=== PATIENT | male | born 1955 | race Caucasian/White ===

== ENCOUNTER → 2020-08-17 | Outpatient (REF) | payer MEDICARE, BC ==
[2020-08-17 13:13] LABS: HEMATOCRIT 46.5 % (42.0-52.0); HEMOGLOBIN 15.2 g/dl (13.5-17.5); MEAN CORPUSCULAR HEMOGLOBIN 31.3 pg (27.0-33.0); MEAN CORPUSCULAR HGB CONC 32.7 g/dl (32.0-36.5); MEAN CORPUSCULAR VOLUME 95.7 fl (80.0-96.0); PLATELET COUNT, AUTOMATED 155 10^3/uL (150-450); RED BLOOD COUNT 4.86 10^6/uL (4.30-6.10); WHITE BLOOD COUNT 5.4 10^3/uL (4.0-10.0)
[2020-08-17 13:55] LABS: BLOOD UREA NITROGEN 11 MG/DL (7-18); CARBON DIOXIDE LEVEL 29 MEQ/L (21-32); CHLORIDE LEVEL 108 MEQ/L (98-107); CREATININE FOR GFR 0.99 MG/DL (0.70-1.30); GLOMERULAR FILTRATION RATE > 60.0 (>49); GLUCOSE, FASTING 86 MG/DL (70-100); POTASSIUM SERUM 4.8 MEQ/L (3.5-5.1); SODIUM LEVEL 141 MEQ/L (136-145)
[2020-08-17 13:56] LABS: ALBUMIN 3.7 GM/DL (3.2-5.2); ALT/SGPT 28 U/L (12-78); BILIRUBIN,TOTAL 0.4 MG/DL (0.2-1.0); CALCIUM LEVEL 9.1 MG/DL (8.8-10.2); CHOLESTEROL LEVEL 197 MG/DL (<200); CHOLESTEROL RISK RATIO 3.648 (<5); FREE T4 1.11 NG/DL (0.76-1.46); HDL CHOLESTEROL 54 MG/DL (>40); LDL CHOLESTEROL 130 MG/DL (<100); NON-HDL-C 143 MG/DL; TOTAL 25(OH) VITAMIN D 39.7 NG/ML (30.0-100.0); TOTAL PROTEIN 6.7 GM/DL (6.4-8.2); TRIGLYCERIDES LEVEL 63 MG/DL (<150)
[2020-08-17 14:18] LABS: HEMOGLOBIN A1c 5.4 %
== END ==
LOC: M SFHCADAM 08:06
PROVIDERS: ATTEND Physician Assistant
DX: Q78.0 Osteogenesis imperfecta (principal); K21.9 Gastro-esophageal reflux disease without esophagitis; Z13.1 Encounter for screening for diabetes mellitus; Z13.220 Encounter for screening for lipoid disorders; E78.00 Pure hypercholesterolemia, unspecified

== ENCOUNTER → 2020-12-05 | Outpatient (CLI) | payer MEDICARE ==
--- NOTE | 2020-12-07 08:49 | DEXAMM ---
INDICATION: Z13.820 OSTEOPOROSIS/Q78.0/OSTEOGENESIS. COMPARISON: None. TECHNIQUE: Bone density was measured using dual-energy x-ray absorptionmetry (DEXA). FINDINGS: AP SPINE L1-L4 BMD 1.104 g/cm2 Young Adult T-Score -0.7 Age Matched Z-Score -0.6. LT FEMUR, TOTAL BMD 0.856 g/cm2 Young Adult T-Score -1.2 Age Matched Z-Score -1.1. LT NECK BMD 0.905 g/cm2 Young Adult T-Score -1.0 Age Matched Z-Score -0.1. RT FEMUR, TOTAL BMD 0.758 g/cm2 Young Adult T-Score -2.0 Age Matched Z-Score -1.8. RT NECK BMD 0.830 g/cm2 Young Adult T-Score -1.5 Age Matched Z-Score -0.7. IMPRESSION: There is normal bone density of the spine. There is low bone density of the left hip. There is low bone density of the right hip. FOLLOW-UP: Recommendation for the next bone density exam: 2 years. <Electronically signed by Manuel Lagunas > 12/07/20 0815
== END ==
LOC: M WHC 13:46
PROVIDERS: ATTEND Physician Assistant
DX: Q78.0 Osteogenesis imperfecta (principal); Z13.820 Encounter for screening for osteoporosis

== ENCOUNTER → 2020-12-24 | Outpatient (CLI) | payer MEDICARE | LOC: M LABSMTC 09:56 | PROVIDERS: ATTEND Anesthesiology | DX: Z01.812 Encounter for preprocedural laboratory examination (principal); Z20.822 Contact with and (suspected) exposure to COVID-19 ==

== ENCOUNTER 2020-12-29 08:36 | Day surgery (SDC) | payer MEDICARE ==
[~2020-12-29] VITALS: Ht 182.9 cm; Wt 84.8 kg
[~2020-12-29 08:36] MED LIST: NS 1,000 ML IV ONE
--- OUTSIDE RECORDS SUMMARY | 2020-12-29 08:43 | CCD ---
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 Active 04551836 Problem Gastroesophageal reflux disease without esophagitis K21.9 Active 907215377 Problem Colon cancer screening Z12.11 Active 108150195 Problem Pure hypercholesterolemia E78.00 Active 747599 004 ALLERGIES No Known Allergies ENCOUNTERS from 1955 to 2020-11-27 Encounter Location Date Provider Diagnosis [facility] [address] [place] [address] 12 Nov, 2020 Reg mckenna Michael Osteogenesis imperfecta Q78.0 ; Gastroesophageal reflux disease without esophagitis K21.9 ; Osteoporosis screening Z13.820 ; H/O prostate cancer Z85.46 and Pure hypercholesterolemia E78.00 IMMUNIZATIONS Vaccine Route Administration Date Status Influenza (18 yrs & older) Flublok IM Intramuscular Aug 12, 2020 Administered Pneumococcal Adult 0.5mL (Pneumovax 23) IM Intramuscular Aug 12, 2020 Administered SOCIAL HISTORY Tobacco Use: Social History Observation Description Date Details (start date - stop date) Never Smoker Sex Assigned At : Social History Observation Description Sex Assigned At Unknown Audit Question Answer Notes Total Score: 0 Interpretation: Alcohol Education Language: Question Answer Notes Languages spoken: Uzbek Drug and Alcohol Question Answer Notes Total Score: 1 Interpretation: Low level Alcohol Screening: Question Answer Notes Did you have a drink containing alcohol in the past year? No Points 0 Interpretation Negative Tobacco Use: Question Answer Notes Are you a: never smoker REASON FOR REFERRAL No Information VITAL SIGNS Weight 198.8 lbs Nov, Height 6' in Nov, BMI 26.96 kg/m2 Nov, Heart Rate 77 /min Nov, Respiratory Rate 18 /min Nov, Temperature 98.6 degrees Fahrenheit Nov, Oximetry 99 Nov, Blood pressure systolic 120 mm Hg Nov, Blood pressure diastolic 80 mm Hg Nov, MEDICATIONS Medication SIG (Take, Route, Frequency, Duration) Notes Start Da te End Date Status Calcium + D 600-200 MG-UNIT 1 tablet Orally Twice a day Active PROCEDURES No Information RESULTS No Results REASON FOR VISIT 3 month lab follow up MEDICAL (GENERAL) HISTORY Type Description Date Medical History Osteogenesis imperfecta - Pr eviously folllowed by Dr. Dominguez (Endocrinology) Medical History H/O Prostate Cancer s/p RT - follows with Urologist in [place], [place] Medical History Chronic Low Back Pain - Prev iously followe by pain clinic on Morphine, but now just uses [facility] periodically Medical History GERD with esophageal stricture Medical History Hyperlipidemia - ASCVD Risk = 12.6% 11/30 20 (Declines Statin) Surgical History Colonoscopy - [facility] (DR. Sanchez) - polyps 2015 Goals Section No Information Health Concerns No Information MEDICAL EQUIPMENT No Information MENTAL STATUS No Information FUNCTIONAL STATUS No Information ASSESSMENTS Encounter Date Diagnosis Assessment Notes Treatment Notes Treatm ent Clinical Notes Nov, Osteogenesis imperfecta (ICD-10 - Q78.0) Nov, Gastroesophageal reflux dise ase without esophagitis (ICD-10 - K21.9) Nov, Osteoporosis screening (ICD-10 - Z13.820) Nov, H/O prostate cancer (ICD-10 - Z85.46) Per Urology in [facility] Nov, Pure hypercholesterolemia (ICD-10 - E78.00) ASCVD Risk = 12.6%. Statin recommended. Risk and benefits discussed. Patient declines statin at this time PLAN OF TREATMENT Medication Medication Name Sig Start Date Stop Date Calcium + D 600-200 MG-UNIT 1 tablet Orally Twice a day Treatment Notes Assessment Notes Clinical Notes H/O prostate cancer Per Urology in [facility] Pure hypercholesterolemia ASCVD Risk = 1 2.6%. Statin recommended. Risk and benefits discussed. Patient declines statin at this time Treatment Notes Test Name Order Date DEXA Hip and Spine 2020-11-27 Next Appt Details 1 Year, labs prior Reason: Insurance Providers Payer Name Payer Address Payer Phone Insured Name Patient Relati onship to Insured Coverage Start Date Coverage End Date [employer] BCBS PPO [id number] [id number] [place] MEDICARE Part A and [address] [facility] [id number] [phone] [employer] [place]IGHT
--- OUTSIDE RECORDS SUMMARY | 2020-12-29 08:44 | CCD ---
Author Author [facility] Organization [facility] Address Unknown Phone Unavailable Care Team Providers Care Tube Fitter Name Role Phone Alanis, C Karla DO Unavailable Unavailable Alanis, C Karla DO Unavailable Unavailable Alanis, C Karla DO Unavailable Unavailable Alanis, C Karla DO Unavailable Unavailable Alanis, C Karla DO Unavailable Unavailable Alanis, C Karla DO Unavailable Unavailable Alanis, C Karla DO Unavailable Unavailable Alanis, C Karla DO Unavailable Unavailable Alanis, C Karla DO Unavailable Unavailable Alanis, C Karla DO Unavailable Unavailable Alanis, C Karla DO Unavailable Unavailable Alanis, C Karla DO Unavailable Unavailable Alanis, C Karla DO Unavailable Unavailable Alanis, C Karla DO Unavailable Unavailable Alanis, C Karla DO Unavailable Unavailable Alanis, C Karla DO Unavailable Unavailable Alanis, C Karla DO Unavailable Unavailable Alanis, C Karla DO Unavailable Unavailable Alanis, C Karla DO Unavailable Unavailable Alanis, C Karla DO Unavailable Unavailable Alanis, C Karla DO Unavailable Unavailable Alanis, C Karla DO Unavailable Unavailable Alanis, C Karla DO Unavailable Unavailable Alanis, C Karla DO Unavailable Unavailable Alanis, C Karla DO Unavailable Unavailable Alanis, C Karla DO Unavailable Unavailable Alanis, C Karla DO Unavailable Unavailable Alanis, C Karla DO Unavailable Unavailable Alanis, C Karla DO Unavailable Unavailable Alanis, C Karla DO Unavailable Unavailable Alanis, C Karla DO Unavailable Unavailable Alanis, C Karla DO Unavailable Unavailable Alanis, C Karla DO Unavailable Unavailable Alanis, C Karla DO Unavailable Unavailable Alanis, C Karla DO Unavailable Unavailable Alanis, C Karla DO Unavailable Unavailable Alanis, C Karla DO Unavailable Unavailable Alanis, C Karla DO Unavailable Unavailable Alanis, C Karla DO Unavailable Unavailable Alanis, C Karla DO Unavailable Unavailable Alanis, C Karla DO Unavailable Unavailable Alanis, C Karla DO Unavailable Unavailable Alanis, C Karla DO Unavailable Unavailable Alanis, C Karla DO Unavailable Unavailable Alanis, C Karla DO Unavailable Unavailable Alanis, C Karla DO Unavailable Unavailable Alanis, C Karla DO Unavailable Unavailable Alanis, C Karla DO Unavailable Unavailable Alanis, C Karla DO Unavailable Unavailable Alanis, C Karla DO Unavailable Unavailable Alanis, C Karla DO Unavailable Unavailable Alanis, C Karla DO Unavailable Unavailable Zhou, S Rusty RPA Unavailable Unavailable Zhou, S Rusty RPA Unavailable Unavailable Zhou, S Rusty RPA Unavailable Unavailable Zhou, S Rusty RPA Unavailable Unavailable Zhou, S Rusty RPA Unavailable Unavailable Zhou, S Rusty RPA Unavailable Unavailable Zhou, S Rusty RPA Unavailable Unavailable Zhou, S Rusty RPA Unavailable Unavailable Zhou, S Rusty RPA Unavailable Unavailable Zhou, S Rusty RPA Unavailable Unavailable Zhou, S Rusty RPA Unavailable Unavailable Zhou, S Rusty RPA Unavailable Unavailable Zhou, S Rusty RPA Unavailable Unavailable Zhou, S Rusty RPA Unavailable Unavailable Zhou, S Rusty RPA Unavailable Unavailable Zhou, S Rusty RPA Unavailable Unavailable Zhou, S Rusty RPA Unavailable Unavailable Zhou, S Rusty RPA Unavailable Unavailable Zhou, S Rusty RPA Unavailable Unavailable Zhou, S Rusty RPA Unavailable Unavailable Zhou, S Rusty RPA Unavailable Unavailable Zhou, S Rusty RPA Unavailable Unavailable Zhou, S Rusty RPA Unavailable Unavailable Zhou, S Rusty RPA Unavailable Unavailable Zhou, S Rusty RPA Unavailable Unavailable Zhou, S Rusty RPA Unavailable Unavailable Zhou, S Rusty RPA Unavailable Unavailable Zhou, S Rusty RPA Unavailable Unavailable Zhou, S Rusty RPA Unavailable Unavailable Zhou, S Rusty RPA Unavailable Unavailable Zhou, S Rusty RPA Unavailable Unavailable Zhou, S Rusty RPA Unavailable Unavailable Zhou, S Rusty RPA Unavailable Unavailable Zhou, S Rusty RPA Unavailable Unavailable Zhou, S Rusty RPA Unavailable Unavailable Zhou, S Rusty RPA Unavailable Unavailable Zhou, S Rusty RPA Unavailable Unavailable Zhou, S Rusty RPA Unavailable Unavailable Zhou, S Rusty RPA Unavailable Unavailable Zhou, S Rusty RPA Unavailable Unavailable Zhou, S Rusty RPA Unavailable Unavailable Zhou, S Rusty RPA Unavailable Unavailable Zhou, S Rusty RPA Unavailable Unavailable Zhou, S Rusty RPA Unavailable Unavailable Zhou, S Rusty RPA Unavailable Unavailable Zhou, S Rusty RPA Unavailable Unavailable Abelardo, S Rusty RPA Unavailable Unavailable Abelardo, S Rusty RPA Unavailable Unavailable Abelardo, S Rusty RPA Unavailable Unavailable Abelardo, S Rusty RPA Unavailable Unavailable Abelardo, S Rusty RPA Unavailable Unavailable Abelardo, S Rusty RPA Unavailable Unavailable Abelardo, S Rusty RPA Unavailable Unavailable Abelardo, S Rusty RPA Unavailable Unavailable Abelardo, S Rusty RPA Unavailable Unavailable Abelardo, S Rusty RPA Unavailable Unavailable Abelardo, S Rusty RPA Unavailable Unavailable Abelardo, S Rusty RPA Unavailable Unavailable Abelardo, S Rusty RPA Unavailable Unavailable Abelardo, S Rusty RPA Unavailable Unavailable Re-disclosure Warning The records that you are about to access may contain information from federally-assisted alcohol or drug abuse programs. If such information is present, then the following federally mandated warning applies: This information has been disclosed to you from records protected by federal confidentiality rules (42 CFR part 2). The federal rules prohibit you from making any further disclosure of this information unless further disclosure is expressly permitted by the written consent of the person to whom it pertains or as otherwise permitted by 42 CFR part 2. A general authorization for the release of medical or other information is NOT sufficient for this purpose. The Federal rules restrict any use of the information to criminally investigate or prosecute any alcohol or drug abuse patient.The records that you are about to access may contain highly sensitive health information, the redisclosure of which is protected by Article 27-F of the [facility] Public Health law. If you continue you may have access to information: Regarding HIV / AIDS; Provided by facilities licensed or operated by the [facility] Office of Mental Health; or Provided by the [facility] Office for People With Developmental Disabilities. If such information is present, then the following [facility] mandated warning applies: This information has been disclosed to you from confidential records which are protected by state law. State law prohibits you from making any further disclosure of this information without the specific written consent of the person to whom it pertains, or as otherwise permitted by law. Any unauthorized further disclosure in violation of state law may result in a fine or shelter sentence or both. A general authorization for the release of medical or other information is NOT sufficient authorization for further disc losure. Family History Family Member Name Family Member Gender Family Member Status Date o f Status Description Data Source(s) Unknown Male Problem [facility] ([facility] [place] Encounters Encounter Providers Location Date Indications Data Source(s ) Out[place] [address] [facility] [place] [address] 11/22/2020 12:00:00 AM EST eCW1 ([facility]) Outpatient Attender: Rusty Zhou RPA Nilsa/ A.M.P. Urolo gy 08/31/2020 01:00:00 PM EDT [facility] ([facility] [place] [address] [facility] [place] [address] 08/12/2020 12:00:00 AM EDT eCW1 ([facility]) Outpatient Attender: Karla Alanis DO [facility] 01/21/2020 08:45:00 AM EDT [facility] ([facility]) Immunizations Vaccine Date Status Description Data Source(s) pneumococcal polysaccharide PPV23 08/12/2020 12:04:00 PM EDT comple odette eCW1 ([facility]) pneumococcal polysaccharide PPV23 08/12/2020 12:04:00 PM EDT comple odette eCW1 ([facility]) influenza, recombinant, quadrIvalent,injectable, prese rvative free 08/12/2020 12:03:00 PM EDT completed eCW1 ([facility]) influenza, recombinant, quadrIvalent,injectable, prese rvative free 08/12/2020 12:03:00 PM EDT completed eCW1 ([facility]) Pneumococcal conjugate PCV 13 01/21/2020 08:35:00 AM EDT completed [facility] ([facility]) Tdap 01/21/2020 08:35:00 AM EDT completed M EDENT ([facility]) Insurance Providers Payer name Policy type / Coverage type Policy ID Covered libertarian ID Covered libertarian's relationship to murillo Policy [place] Plan Information MEDICARE BLUE PPO 306 [id number] SP [id number] MEDICARE BLUE PPO 306 [id number] SP [id number] EXCELL BC-BS PPO 306 [id number] SP [id number] MEDICARE [id number] SP [id number] SELF PAY MEDICARE BLUE PPO EXCELLUS BC [id number] SP [id number] MEDICARE BLUE PPO EXCELLUS BC [id number] SP [id number] SELF PAY MEDICARE [id number] SP [id number] Medicare Medigap Part B [id number] Self [id number] BCBS Excellus Medicare Commercial [id number] Self [id number] [place] Medig[place] B [id number] Family Dependent [id number] BLUE CROSS BLUE CROSS [id number] SP [id number] BLUE CROSS [id number] SP [id number] BLUE CROSS [id number] SP [id number] MEDICARE BLUE PPO EXCELLUS BC UNAVAILABLE SP UNAVAILABLE MEDICARE BLUE PPO EXCELLUS BC [id number] SP [id number] MEDICARE [id number] SP [id number] A BLUE CROSS [id number] SP [id number] Medicare Medigap Part B [id number] Self [id number] BCBS Excellus Medicare Commercial [id number] Self [id number] Medicare Medicare Primary [id number] Self [id number] [place] Med[place] B Ppo Family Dependent Ppo Medicare Medicare Primary Self [place] Family Dependent Problems, Conditions, and Diagnoses Code Display Name Description Problem Type Effective Dates Data Source(s) E78.00 414185602 Pure hypercholesterolemia Problem 11/23/2020 12:00:00 AM EST eCW1 ([facility]) Z13.820 425310794 Osteoporosis screening Problem 11/22/2020 12 :00:00 AM EST eCW1 ([facility]) Z85.46 064918686 H/O prostate cancer Problem 11/22/2020 12:00 :00 AM EST eCW1 ([facility]) Z12.11 781312809 Colon cancer screening Problem 08/12/2020 12 :00:00 AM EDT eCW1 ([facility]) K21.9 920940775 Gastroesophageal reflux disease without e sophagitis Problem 08/12/2020 12:00:00 AM EDT eCW1 ([facility]) Q78.0 93145849 Osteogenesis imperfecta Problem 08/12/2020 1 2:00:00 AM EDT eCW1 ([facility]) Surgeries/Procedures Procedure Description Date Indications Data Source(s) PNEUMOCOCCAL POLYSAC VACCINE 23-V 2 />YR SUBQ/IM 08/12 12:00:00 AM EDT eCW1 ([facility]) Immunization: Flublok Quadrivalent (18 years & older) 0.5mL IM (Influenza) 08/12/2020 12:00:00 AM EDT eCW1 ([facility]) Results ID Date Data Source [id number] 12/24/2020 11:00:00 AM EST [facility] Name Value Range Interpretation Code Description Data Bhavna rce(s) Supporting Document(s) SARS coronavirus 2 RNA Not Detected [facility] [place] This lab was ordered by [facility] and reported by [facility]. ID Date Data Source [id number] 08/31/2020 01:04:00 PM EDT [facility] ([facility] [place]) Name Value Range Interpretation Code Description Data Bhavna rce(s) Supporting Document(s) Glucose [Presence] in Urine Laboratory test result [facility] ([facility] [place]) Ua Nitrite Laboratory test result ME DENT ([facility] [place]) Protein [Presence] in Urine by Test strip Laboratory test result [facility] ([facility] [place]) Ua Leuko Laboratory test result ME DENT ([facility] [place]) Ketones [Presence] in Urine by Test strip Laboratory test result [facility] ([facility] [place]) Blood [Presence] in Urine by Visual Laboratory test result [facility] ([facility] [place]) Color of Urine Laboratory test result [facility] ([facility] [place]) Clarity of Urine Laboratory test result [facility] ([facility] [place]) Ua Specific [place] 1.020 1.003-1.030 MEDE NT ([facility] [place]) pH of Urine by Test strip 6.0 5.0-7.5 [facility] ([facility]) Bilirubin.total [Presence] in Urine by Test strip Laboratory test res ult [facility] ([facility] [place]) Urobilinogen [Mass/volume] in Urine by Test strip 0.2 E.U./dL 0.0-1.0 [facility] ([facility] [place]) ID Date Data Source [id number] 08/23/2020 01:00:00 PM EDT [facility] ([facility] [place]) Name Value Range Interpretation Code Description Data Bhavna rce(s) Supporting Document(s) Prostate specific Ag [Mass/volume] in Serum or Plasma 0.5 ng/mL 0.0- 4.0 [facility] ([facility] [place]) IN 20% OF CASES W/ BPH, PSA MAY BE 10 NG/ML OR MORE. SERUM PSA CONCENTRATION SHOULD NOT BE INTERPRETED ABSOLUTE EVIDENCE FOR THE PRESENCE OR ABSENCE OF MALIGNANT DISEASE. METHOD IS [employer] CHEMILUMINESCENT IMMUNOASSAY (CALIBRATION TRACEABLE TO WHO 1ST IS, 1998,96/668). VALUES OBTAINED WITH DIFFERENT ASSAY METHODS OR KITS CANNOT BE USED INTERCHANGEABLY. Procedure Social History Code Duration Value Status Description Data Source(s ) Smoking 11/22/2020 12:00:00 AM EST Never Smoker completed Never S moker eCW1 ([facility]) Smoking 08/31/2020 12:00:00 AM EDT current cigarette smoker co mpleted current cigarette smoker [facility] ([facility] [place]) Smoking 08/12/2020 12:00:00 AM EDT Never Smoker completed Never S moker eCW1 ([facility]) Vital Signs ID Date Data Source UNK Name Value Range Interpretation Code Description Data Source(s) Diastolic blood pressure 80 mm[Hg] 80 mm[Hg] eCW1 ([facility]) Systolic blood pressure 120 mm[Hg] 120 mm[Hg] e CW1 ([facility]) Body temperature 98.6 [degF] 98.6 [degF] eCW1 ( [facility]) Respiratory rate 18 /min 18 /min eCW1 ([facility]) Heart rate 77 /min 77 /min eCW1 ([facility]) Body mass index (BMI) [Ratio] 26.96 kg/m2 26.96 kg/m2 W1 ([facility]) Body height [in_i] W1 ([facility]) Body weight 198.8 [lb_av] 198.8 [lb_av] eCW1 ([facility]) Heart rate 72 /min 72 /min [facility] ([facility] [place] Diastolic blood pressure 78 mm[Hg] 78 mm[Hg] [facility] ([facility] [place]) Systolic blood pressure 122 mm[Hg] 122 mm[Hg] M EDENT ([facility] [place]) Body mass index (BMI) [Ratio] 25.1 kg/m2 25.1 k g/m2 [facility] ([facility] [place]) Body weight 83.916 kg 83.916 kg [facility] ([facility] [place]) Body weight 185.00 [lb_av] 185.00 [lb_av] MEDEN T ([facility] [place]) Body height 72 [in_i] 72 [in_i] [facility] ([facility] [place]) 6'0" Diastolic blood pressure 70 mm[Hg] 70 mm[Hg] eCW1 ([facility]) Systolic blood pressure 130 mm[Hg] 130 mm[Hg] e CW1 ([facility]) Body temperature 98.3 [degF] 98.3 [degF] eCW1 ( [facility]) Respiratory rate 18 /min 18 /min eCW1 ([facility]) Heart rate 82 /min 82 /min eCW1 ([facility]) Body mass index (BMI) [Ratio] 26.47 kg/m2 26.47 kg/m2 eCW1 ([facility]) Body height [in_i] eCW1 ([facility]) Body weight 195.2 [lb_av] 195.2 [lb_av] eCW1 ([facility]) Oxygen saturation in Arterial blood by Pulse oximetry 98 % 98 % [facility] ([facility]) Body mass index (BMI) [Ratio] 26.9 kg/m2 26.9 k g/m2 [facility] ([facility]) Body weight 90.040 kg 90.040 kg [facility] ([facility]) Body weight 198.50 [lb_av] 198.50 [lb_av] MEDEN T ([facility]) Body height 72 [in_i] 72 [in_i] MEDBRIANNE ([facility] 6'0" Body temperature 97.2 [degF] 97.2 [degF] MEDBRIANNE ([facility]) Heart rate 67 /min 67 /min AB ([facility]) Diastolic blood pressure 73 mm[Hg] 73 mm[Hg] AB ([facility]) Systolic blood pressure 134 mm[Hg] 134 mm[Hg] M LILIYA ([facility])
[2020-12-29] MEDS ORDERED: propofoL 200 MG/20 ML VIAL As Ordered ONE ×3 (09:33→10:11)
--- NOTE | 2020-12-29 10:43 | ROOR ---
Patient Name: Neo Chinchilla Procedure Date: 12/29/2020 9:31 AM Date of : 1955 Age: 65 Room: [facility] Gender: Male Note Status: Finalized Procedure: Colonoscopy Indications: High risk colon cancer surveillance: Personal history of colonic polyps Providers: Dg Levine MD Referring MD: Ralf Rodriguez MD Requesting Provider: Medicines: Monitored Anesthesia Care Complications: No immediate complications. Procedure: Pre-Anesthesia Assessment: - Prior to the procedure, a History and Physical was performed, and patient medications and allergies were reviewed. The patient is competent. The risks and benefits of the procedure and the sedation options and risks were discussed with the patient. All questions were answered and informed consent was obtained. Patient identification and proposed procedure were verified by the physician, the nurse and the anesthesiologist in the procedure room. Mental Status Examination: alert and oriented. Airway Examination: normal oropharyngeal airway and neck mobility. Respiratory Examination: clear to auscultation. CV Examination: normal. Prophylactic Antibiotics: The patient does not require prophylactic antibiotics. Prior Anticoagulants: The patient has taken no previous anticoagulant or antiplatelet agents. ASA Grade Assessment: II - A patient with mild systemic disease. After reviewing the risks and benefits, the patient was deemed in satisfactory condition to undergo the procedure. The anesthesia plan was to use monitored anesthesia care (MAC). Immediately prior to administration of medications, the patient was re-assessed for adequacy to receive sedatives. The heart rate, respiratory rate, oxygen saturations, blood pressure, adequacy of pulmonary ventilation, and response to care were monitored throughout the procedure. The physical status of the patient was re-assessed after the procedure. The Colonoscope was introduced through the anus and advanced to the terminal ileum, with identification of the appendiceal orifice and IC valve. The colonoscopy was performed without difficulty. The patient tolerated the procedure well. The quality of the bowel preparation was good. The terminal ileum, ileocecal valve, appendiceal orifice, and rectum were photographed. Scope insertion time was 2 minutes. Scope withdrawal time was 15 minutes. The total duration of the procedure was 17 minutes. Findings: The perianal and digital rectal examinations were normal. The terminal ileum appeared normal. Multiple ( more than 10) sessile polyps were found in the sigmoid colon, descending colon, transverse colon and ascending colon. The polyps were 4 to 12 mm in size. These polyps were removed with a cold snare. Resection and retrieval were complete. To close a defect after polypectomy, one hemostatic clip was successfully placed. There was no bleeding at the end of the procedure. Non-bleeding external and internal hemorrhoids were found during retroflexion. The hemorrhoids were medium-sized. Patchy mild mucosal changes characterized by altered vascularity and erythema were found in the distal rectum. Impression: - The examined portion of the ileum was normal. - Multiple ( more than 10 polyps) 4 to 12 mm size polyps in the sigmoid colon, in the descending colon, in the transverse colon and in the ascending colon, removed with a cold snare. Resected and retrieved. Clip was placed. - Non-bleeding external and internal hemorrhoids. 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 Recommendation: - Patient has a contact number available for emergencies. The signs and symptoms of potential delayed complications were discussed with the patient. Return to normal activities tomorrow. Written discharge instructions were provided to the patient. - Clear liquid diet today, then advance as tolerated to high fiber diet. - Continue present medications. - Miralax 1 capful (17 grams) in 8 ounces of water PO daily for 5 days. - Use hydrocortisone suppository 25 mg 1 per rectum once a day for 5 days. - Await pathology results. - Repeat colonoscopy in 1 year for surveillance of multiple polyps. - Check Genetic testing based on the family history for FAP syndrome at appointment to be scheduled. - Telephone GI clinic for pathology results in 2 weeks. - Return to GI clinic in [facility] (address [address], [address], [place], [facility]) in 4 -- 6 weeks. Please call GI clinic @ [phone] for apppointment date and time. - Return to primary care physician. Procedure Code(s): --- Professional --- 81245, Colonoscopy, flexible; with removal of tumor(s), polyp(s), or other lesion(s) by snare technique Diagnosis Code(s): --- Professional --- Z86.010, Personal history of colonic polyps K64.8, Other hemorrhoids K63.5, Polyp of colon K62.7, Radiation proctitis CPT copyright 2019 [employer]. All rights reserved. The codes documented in this report are preliminary and upon human resources officer review may be revised to meet current compliance requirements. Dg Levine MD Dg Levine MD 12/29/2020 10:43:20 AM Electronically signed by Dg Levine MD Number of Addenda: 0 Note Initiated On: 12/29/2020 9:31 AM Estimated Blood Loss: Estimated blood loss was minimal.
[2020-12-29 11:10] VITALS: BP 96/56
== END 2020-12-29 11:16 | disposition home or self-care (01) ==
LOC: M OPP 08:36
PROVIDERS: ATTEND Internal Medicine Gastroenterology
DX: Z12.11 Encounter for screening for malignant neoplasm of colon (principal); Z86.010 Personal history of colon polyps; K63.5 Polyp of colon; K64.8 Other hemorrhoids; K62.7 Radiation proctitis; K21.9 Gastro-esophageal reflux disease without esophagitis; Q78.0 Osteogenesis imperfecta; Z85.46 Personal history of malignant neoplasm of prostate; Z92.3 Personal history of irradiation; Z87.891 Personal history of nicotine dependence; Z80.0 Family history of malignant neoplasm of digestive organs

== ENCOUNTER → 2021-08-29 | Outpatient (REF) | payer MEDICARE ==
[2021-08-29 12:44] LABS: HEMATOCRIT 47.1 % (42.0-52.0); HEMOGLOBIN 15.5 g/dl (13.5-17.5); MEAN CORPUSCULAR HEMOGLOBIN 31.3 pg (27.0-33.0); MEAN CORPUSCULAR HGB CONC 32.9 g/dl (32.0-36.5); PLATELET COUNT, AUTOMATED 151 10^3/uL (150-450); RED BLOOD COUNT 4.96 10^6/uL (4.30-6.10)
[2021-08-29 13:17] LABS: ALBUMIN 3.8 GM/DL (3.2-5.2); ALT/SGPT 21 U/L (12-78); BILIRUBIN,TOTAL 0.5 MG/DL (0.2-1.0); BLOOD UREA NITROGEN 10 MG/DL (7-18); CALCIUM LEVEL 10.1 MG/DL (8.8-10.2); CARBON DIOXIDE LEVEL 30 MEQ/L (21-32); CHLORIDE LEVEL 108 MEQ/L (98-107); CHOLESTEROL LEVEL 201 MG/DL (<200); CHOLESTEROL RISK RATIO 3.406 (<5); CREATININE FOR GFR 1.09 MG/DL (0.70-1.30); FREE T4 1.08 NG/DL (0.76-1.46); GLOMERULAR FILTRATION RATE > 60.0 (>49); GLUCOSE, FASTING 92 MG/DL (70-100); HDL CHOLESTEROL 59 MG/DL (>40); LDL CHOLESTEROL 123 MG/DL (<100); NON-HDL-C 142 MG/DL; SODIUM LEVEL 141 MEQ/L (136-145); TOTAL PROTEIN 6.7 GM/DL (6.4-8.2); TRIGLYCERIDES LEVEL 97 MG/DL (<150)
[2021-08-29 13:20] LABS: TOTAL 25(OH) VITAMIN D 28.5 NG/ML (30.0-100.0)
[2021-08-29 13:30] LABS: HEMOGLOBIN A1c 5.3 %
== END ==
LOC: M SFHCADAM 09:23
PROVIDERS: ATTEND Physician Assistant
DX: Q78.0 Osteogenesis imperfecta (principal); K21.9 Gastro-esophageal reflux disease without esophagitis; E78.00 Pure hypercholesterolemia, unspecified; Z12.5 Encounter for screening for malignant neoplasm of prostate; Z79.899 Other long term (current) drug therapy
CPT/HCPCS: 80053; 80061; 82306; 83036; 84439; 84443; 85027; G0103

== ENCOUNTER → 2022-02-15 | Outpatient (CLI) | payer MEDICARE ==
[~2022-02-15] MED LIST changes: -NS 1,000 ML IV ONE; +VITAMIN D + CALCIUM PO
== END ==
LOC: M LABSMTC 10:53
PROVIDERS: ATTEND Anesthesiology
DX: Z01.818 Encounter for other preprocedural examination (principal); Z11.52 Encounter for screening for COVID-19

== ENCOUNTER 2022-02-20 07:04 | Day surgery (SDC) | payer MEDICARE ==
[~2022-02-20] VITALS: Ht 182.9 cm; Wt 85.9 kg
[~2022-02-20 07:04] MED LIST changes: +LIDOCAINE 2% 100MG/5ML SDV (FOR ANES.) As Ordered ONE; +NS 1,000 ML IV ONE; +propofoL 200 MG/20 ML VIAL As Ordered ONE
[2022-02-20] MEDS ORDERED: propofoL 200 MG/20 ML VIAL As Ordered ONE (08:41)
[2022-02-20 09:10] VITALS: BP 120/65
== END 2022-02-20 09:22 | disposition home or self-care (01) ==
LOC: M OPP 07:04
PROVIDERS: ATTEND Internal Medicine Gastroenterology
DX: K63.5 Polyp of colon (principal); K64.8 Other hemorrhoids; K62.7 Radiation proctitis; Z86.010 Personal history of colon polyps; Z09 Encounter for follow-up examination after completed treatment for conditions other than malignant neoplasm; Z80.0 Family history of malignant neoplasm of digestive organs; Z87.891 Personal history of nicotine dependence

== ENCOUNTER → 2022-08-30 | Outpatient (REF) | payer MEDICARE ==
[~2022-08-30] MED LIST changes: -LIDOCAINE 2% 100MG/5ML SDV (FOR ANES.) As Ordered ONE; -NS 1,000 ML IV ONE; -propofoL 200 MG/20 ML VIAL As Ordered ONE
[2022-08-30 13:53] LABS: HEMATOCRIT 46.8 % (42.0-52.0); HEMOGLOBIN 15.6 g/dl (13.5-17.5); MEAN CORPUSCULAR HGB CONC 33.3 g/dl (32.0-36.5); MEAN CORPUSCULAR VOLUME 95.9 fl (80.0-96.0); PLATELET COUNT, AUTOMATED 148 10^3/uL (150-450); RED BLOOD COUNT 4.88 10^6/uL (4.30-6.10); WHITE BLOOD COUNT 4.7 10^3/uL (4.0-10.0)
[2022-08-30 15:08] LABS: ALBUMIN 3.7 GM/DL (3.2-5.2); ALT/SGPT 22 U/L (12-78); BILIRUBIN,TOTAL 0.7 MG/DL (0.2-1.0); BLOOD UREA NITROGEN 10 MG/DL (7-18); CARBON DIOXIDE LEVEL 28 MEQ/L (21-32); CHLORIDE LEVEL 108 MEQ/L (98-107); CHOLESTEROL LEVEL 163 MG/DL (<200); CHOLESTEROL RISK RATIO 2.963 (<5); CREATININE FOR GFR 1.04 MG/DL (0.70-1.30); FREE T4 1.06 NG/DL (0.76-1.46); GLOMERULAR FILTRATION RATE > 60.0 (>49); GLUCOSE, FASTING 93 MG/DL (70-100); HDL CHOLESTEROL 55 MG/DL (>40); LDL CHOLESTEROL 95 MG/DL (<100); NON-HDL-C 108 MG/DL; POTASSIUM SERUM 4.8 MEQ/L (3.5-5.1); SODIUM LEVEL 139 MEQ/L (136-145); TOTAL PROTEIN 6.6 GM/DL (6.4-8.2); TRIGLYCERIDES LEVEL 66 MG/DL (<150)
[2022-08-30 16:11] LABS: TOTAL 25(OH) VITAMIN D 34.7 NG/ML (30.0-100.0)
== END ==
LOC: M SFHCADAM 09:06
PROVIDERS: ATTEND Physician Assistant
DX: E78.00 Pure hypercholesterolemia, unspecified (principal); Z85.46 Personal history of malignant neoplasm of prostate; Q78.0 Osteogenesis imperfecta

== ENCOUNTER → 2022-08-30 | Outpatient (CLI) | payer MEDICARE | LOC: M LABDRWAD 09:51 | PROVIDERS: ATTEND Physician Assistant | DX: Z85.46 Personal history of malignant neoplasm of prostate (principal) ==

== ENCOUNTER → 2023-12-06 | Outpatient (REF) | payer MEDICARE ==
[2023-12-06 13:46] LABS: BASO # 0.1 10^3/uL (0.0-0.2); BASO % 1.2 % (0.0-1.0); EOS # 0.1 10^3/uL (0.0-0.5); EOS % 2.4 % (0.0-3.0); HEMATOCRIT 45.8 % (42.0-52.0); HEMOGLOBIN 15.3 g/dl (13.5-17.5); LYMPH # 1.3 10^3/uL (1.5-5.0); LYMPH % 32.2 % (24.0-44.0); MEAN CORPUSCULAR HEMOGLOBIN 31.5 pg (27.0-33.0); MEAN CORPUSCULAR HGB CONC 33.4 g/dl (32.0-36.5); MEAN CORPUSCULAR VOLUME 94.4 fl (80.0-96.0); MONO # 0.6 10^3/uL (0.0-0.8); MONO % 14.5 % (2.0-8.0); NEUTROPHILS # 2.1 10^3/uL (1.5-8.5); NEUTROPHILS % 49.7 % (36.0-66.0); PLATELET COUNT, AUTOMATED 148 10^3/uL (150-450); RED BLOOD COUNT 4.85 10^6/uL (4.30-6.10); WHITE BLOOD COUNT 4.1 10^3/uL (4.0-10.0)
[2023-12-06 13:48] LABS: ALBUMIN 3.7 G/DL (3.2-5.2); ALKALINE PHOSPHATASE 53 U/L (46-116); ALT/SGPT 13 U/L (7.0-40); AST/SGOT 14 U/L (<34); BILIRUBIN,TOTAL 0.7 MG/DL (0.3-1.2); BLOOD UREA NITROGEN 10 MG/DL (9-23); CALCIUM LEVEL 8.1 MG/DL (8.3-10.6); CARBON DIOXIDE LEVEL 26 MMOL/L (20-31); CHLORIDE LEVEL 112 MMOL/L (98-107); CHOLESTEROL LEVEL 177 MG/DL (<200); CHOLESTEROL RISK RATIO 3.37 (<5); CREATININE FOR GFR 0.97 MG/DL (0.70-1.30); GLOMERULAR FILTRATION RATE > 60.0 (>42); GLUCOSE, FASTING 95 MG/DL (74-106); HDL CHOLESTEROL 52.4 MG/DL (>40); LDL CHOLESTEROL 108.6 MG/DL (<100); NON-HDL-C 124.6 MG/DL; POTASSIUM SERUM 4.5 MMOL/L (3.5-5.1); SODIUM LEVEL 135 MMOL/L (136-145); TOTAL PROTEIN 6.4 G/DL (5.7-8.2); TRIGLYCERIDES LEVEL 80 MG/DL (<150)
[2023-12-06 13:50] LABS: FREE T4 1.01 NG/DL (0.89-1.76); THYROID STIMULATING HORMONE 2.236 uIU/ML (0.55-4.78); TOTAL 25(OH) VITAMIN D 32.8 NG/ML (20.0-100.0)
[2023-12-06 14:13] LABS: HEMOGLOBIN A1c 5.2 % (4.0-6.0)
== END ==
LOC: M SFHCADAM 08:35
PROVIDERS: ATTEND Physician Assistant
DX: Z00.00 Encounter for general adult medical examination without abnormal findings (principal); M85.851 Other specified disorders of bone density and structure, right thigh; E78.00 Pure hypercholesterolemia, unspecified; K21.9 Gastro-esophageal reflux disease without esophagitis; Z85.46 Personal history of malignant neoplasm of prostate; Z13.220 Encounter for screening for lipoid disorders; Z13.1 Encounter for screening for diabetes mellitus; Z86.39 Personal history of other endocrine, nutritional and metabolic disease

== ENCOUNTER → 2024-08-21 | Outpatient (REF) | payer MEDICARE ==
[2024-08-21 11:30] LABS: APPEARANCE, URINE CLEAR (CLEAR); BACTERIA, URINE AUTO NEGATIVE (NEGATIVE); BILIRUBIN, URINE AUTO NEGATIVE (NEGATIVE); BLOOD, URINE BLOOD 2+ (NEGATIVE); COLOR, URINE YELLOW (YELLOW); GLUCOSE, URINE (UA) AUTO NEGATIVE (NEGATIVE); KETONE, URINE AUTO NEGATIVE (NEGATIVE); LEUKOCYTE ESTERASE, URINE AUTO NEGATIVE (NEGATIVE); MUCUS, URINE SMALL (NEGATIVE); NITRITE, URINE AUTO NEGATIVE (NEGATIVE); PROTEIN, URINE AUTO NEGATIVE (NEGATIVE); RBC, URINE AUTO 117 /HPF (0-3); SPECIFIC GRAVITY URINE AUTO 1.018 (1.002-1.035); SQUAMOUS EPITHELIAL CELL UR AU 0 /HPF (0-6); UROBILINOGEN, URINE AUTO 0.2 mg/dL (0.0-2.0); WBC, URINE AUTO 1 /HPF (0-3)
== END ==
LOC: M SFHCADAM 09:43
PROVIDERS: ATTEND Physician Assistant
DX: R31.0 Gross hematuria (principal)

== ENCOUNTER → 2024-08-21 | Outpatient (CLI) | payer MEDICARE ==
[2024-08-21 11:00] LABS: BASO # 0.1 10^3/uL (0.0-0.2); BASO % 1.3 % (0.0-1.0); EOS % 0.8 % (0.0-3.0); HEMATOCRIT 47.8 % (42.0-52.0); HEMOGLOBIN 15.9 g/dl (13.5-17.5); LYMPH # 1.2 10^3/uL (1.5-5.0); LYMPH % 23.2 % (24.0-44.0); MEAN CORPUSCULAR HEMOGLOBIN 32.1 pg (27.0-33.0); MEAN CORPUSCULAR HGB CONC 33.3 g/dl (32.0-36.5); MEAN CORPUSCULAR VOLUME 96.4 fl (80.0-96.0); MONO # 0.6 10^3/uL (0.0-0.8); MONO % 11.7 % (2.0-8.0); NEUTROPHILS # 3.3 10^3/uL (1.5-8.5); NEUTROPHILS % 62.6 % (36.0-66.0); PLATELET COUNT, AUTOMATED 165 10^3/uL (150-450); RED BLOOD COUNT 4.96 10^6/uL (4.30-6.10); WHITE BLOOD COUNT 5.3 10^3/uL (4.0-10.0)
[2024-08-21 11:15] LABS: INR 1.01; PARTIAL THROMBOPLASTIN TIME 32.5 SECONDS (24.8-34.2)
[2024-08-21 11:47] LABS: ALKALINE PHOSPHATASE 62 U/L (46-116); ALT/SGPT 24 U/L (7.0-40); AST/SGOT 16 U/L (<34); BILIRUBIN,TOTAL 0.6 MG/DL (0.3-1.2); BLOOD UREA NITROGEN 10 MG/DL (9-23); CALCIUM LEVEL 9.5 MG/DL (8.3-10.6); CARBON DIOXIDE LEVEL 30 MMOL/L (20-31); CHLORIDE LEVEL 110 MMOL/L (98-107); CREATININE FOR GFR 0.89 MG/DL (0.70-1.30); GLOMERULAR FILTRATION RATE > 60.0 (>42); GLUCOSE, FASTING 93 MG/DL (74-106); POTASSIUM SERUM 4.4 MMOL/L (3.5-5.1); PROSTATIC SPECIFIC AG MONITOR 0.28 NG/ML (< 4.00); SODIUM LEVEL 141 MMOL/L (136-145); TOTAL PROTEIN 6.9 G/DL (5.7-8.2)
== END ==
LOC: M LAB 10:16
PROVIDERS: ATTEND Physician Assistant
DX: R31.0 Gross hematuria (principal); Z85.46 Personal history of malignant neoplasm of prostate

== ENCOUNTER → 2024-08-24 | Outpatient (CLI) | payer MEDICARE ==
[~2024-08-24] MED LIST changes: +ISOVUE-370 76% 100ML VIAL ONE
== END ==
LOC: M PLAIMG 07:56
PROVIDERS: ATTEND Physician Assistant
DX: R31.0 Gross hematuria (principal); Z85.46 Personal history of malignant neoplasm of prostate
CPT/HCPCS: 74178; Q9967